=== PATIENT | female | born 1965 | race Two or more races ===

== ENCOUNTER 2020-06-22 18:26 | Inpatient (IN) | payer OTHER, SELFPAY ==
[~2020-06-22] VITALS: Ht 157.5 cm; Wt 50.5 kg
--- NOTE | 2020-06-22 19:39 | NUR ---
SPECIALTY DEVELOPMENT CONSULTANT: PT. TO ROOM FROM LOBBY AT THIS TIME.
[2020-06-22 20:49] LABS: BASOPHILS % (AUTO) 1 % (0-1); EOSINOPHILS % (AUTO) 1 % (1-7); LYMPHOCYTES % (AUTO) 13 % (22-44); MEAN CORPUSCULAR HEMOGLOBIN 27.7 pg (27.0-34.8); MEAN CORPUSCULAR HGB CONC 32.3 g/dL (32.4-35.8); MEAN PLATELET VOLUME 9.9 fL (7.4-10.4); MONOCYTES % (AUTO) 8 % (2-9); NEUTROPHILS % (AUTO) 76 % (42-75); PLATELET COUNT 410 x10^3/uL (130-400); RED BLOOD COUNT 3.71 x10^6/uL (3.82-5.3); RED CELL DISTRIBUTION WIDTH 14.1 % (9.6-15.2)
[2020-06-22 20:58] LABS: MD NO
[2020-06-22 20:59] LABS: ALBUMIN 1.9 g/dL (3.4-5.0); ANION GAP 7 mmol/L (5-15); CALCIUM 8.3 mg/dL (8.5-10.1); CHLORIDE 92 mmol/L (98-107); CREATININE 2.86 mg/dL (0.55-1.02)
--- NOTE | 2020-06-22 21:07 | NUR ---
788 blood sugar critical lab
[2020-06-22 21:30] LABS: PH, VENOUS 7.332 pH (7.320-7.420)
[2020-06-22] MEDS ORDERED: SODIUM CHLORIDE 0.9% 1,000ML IVBOLUS ONE (21:30)
[2020-06-22] MEDS ORDERED: INSULIN REGULAR 100 UNITS/ML, 3ML VIAL SQ-INSULIN ONE (21:30)
[2020-06-22] MEDS ORDERED: INSULIN SINGLE DOSE, ER ONE (21:32)
[2020-06-22] MEDS ORDERED: TRANEXAMIC ACID 100 MG/ML, 10ML ONE (21:37)
--- NOTE | 2020-06-22 21:37 | NUR ---
PT RESTING IN BED. DAUGHTER SUPPORTIVE AT BEDSIDE.
[2020-06-22 21:40] LABS: ACETONE, SERUM Trace (Negative)
[2020-06-22] MEDS ORDERED: SODIUM CHLORIDE FLUSH 10ML SYR IVF PRN (22:00)
[2020-06-22] MEDS ORDERED: ONDANSETRON ODT 4 MG PO PRN (22:30)
[2020-06-22] MEDS: SODIUM CHLORIDE FLUSH 10ML SYR IVF SCH (22:30)
[2020-06-22] MEDS ORDERED: BISACODYL 10 MG SUPP PR PRN (22:30)
[2020-06-22] MEDS ORDERED: POLYETHYLENE GLYCOL 17 GM PACKET PO PRN (22:30)
[2020-06-22] MEDS ORDERED: hydrALAzine 20 MG/ML, 1ML IV PRN (22:30)
[2020-06-22] MEDS ORDERED: ACETAMINOPHEN 325 MG TABLET PO PRN (22:30)
[2020-06-22] MEDS ORDERED: LISI30TA4 PO (22:33)
[2020-06-22] MEDS ORDERED: METF-366 PO (22:35)
[2020-06-22] MEDS ORDERED: EMPA25TA PO (22:37)
[2020-06-22] MEDS ORDERED: OMEP-110 PO (22:37)
[2020-06-22] MEDS ORDERED: ATOR-2 PO (22:37)
--- NOTE | 2020-06-22 22:37 | NUR ---
PT RESTING IN BED WATCHING TV. OXYGEN PLACED ON PT
[2020-06-22] MEDS ORDERED: ATORVASTATIN 80 MG TABLET ONE (23:31)
[2020-06-22] MEDS ORDERED: FUROSEMIDE 20 MG/2 ML ONE (23:31)
[2020-06-22] MEDS: FUROSEMIDE 20 MG/2 ML IV SCH (23:34)
[2020-06-22] MEDS: ATORVASTATIN 80 MG TABLET PO SCH (23:35)
[2020-06-22 23:40] LABS: ESTIMATED AVERAGE GLUCOSE 355 mg/dL (0-126)
[2020-06-23 00:09] LABS: INTERNATIONAL NORMALIZED RATIO 0.9 (0.93-1.1); PROTHROMBIN TIME 9.6 Seconds (9.6-11.5)
[2020-06-23] MEDS: INSULIN LISPRO 100 UNITS/ML, PEN SQ-INSULIN SCH ×6 (00:26→21:03)
--- NOTE | 2020-06-23 00:27 | NUR ---
PT AMBULATING TO BATHROOM ON OWN. VSS.
--- NOTE | 2020-06-23 00:52 | NUR ---
report given to mahendra delarosa
--- NOTE | 2020-06-23 00:54 | NUR ---
report received from fortino mccray
--- NOTE | 2020-06-23 01:53 | NUR ---
SUGAR FREE JELLO AND SPRITE GIVEN TO PT
--- NOTE | 2020-06-23 03:00 | NUR ---
PT SLEEPING, NO NEEDS AT THIS TIME. VSS
--- NOTE | 2020-06-23 03:57 | NUR ---
placed on 3L oxy mask while sleeping, O2 98%. Rhino rocket in place, pt tolerating well.
--- NOTE | 2020-06-23 05:00 | NUR ---
PT SLEEPING. VSS.
[2020-06-23] MEDS ORDERED: CARVEDILOL 3.125 MG TABLET PO SCH (06:00)
[2020-06-23] MEDS ORDERED: CARVEDILOL 3.125 MG TABLET ONE (06:05)
--- NOTE | 2020-06-23 06:30 | NUR ---
PT PLACED ON HOSPITAL BED, MEDICATED WITH AM BEDS, BLOOD SUGAR TAKEN, AND US COLLECTED. PT WALKED TO BATHROOM WITH STEADY GAIT.
--- NOTE | 2020-06-23 07:02 | NUR ---
REPORT GIVEN TO TELMA MALDONADO
[2020-06-23 07:44] LABS: MICROSCOPIC INDICATED
[2020-06-23] MEDS ORDERED: OMEPRAZOLE 20 MG CAPSULE.DR ONE (08:25)
[2020-06-23] MEDS ORDERED: SENNA/DOCUSATE TABLET ONE ×2 (08:26→08:38)
[2020-06-23] MEDS ORDERED: FUROSEMIDE 20 MG/2 ML ONE (08:26)
[2020-06-23] MEDS: FUROSEMIDE 20 MG/2 ML IV SCH (08:30)
[2020-06-23] MEDS: SODIUM CHLORIDE FLUSH 10ML SYR IVF SCH ×2 (08:32→21:02)
[2020-06-23] MEDS: SENNA/DOCUSATE TABLET PO SCH (08:39)
[2020-06-23] MEDS ORDERED: OMEPRAZOLE 20 MG CAPSULE.DR PO SCH (09:00)
[2020-06-23] MEDS: LACTOBACILLUS CHEW TABLET PO SCH ×3 (09:51→20:45)
[2020-06-23 10:25] LABS: BASOPHILS % (AUTO) 1 % (0-1); EOSINOPHILS % (AUTO) 2 % (1-7); LYMPHOCYTES % (AUTO) 14 % (22-44); MEAN CORPUSCULAR HEMOGLOBIN 27.7 pg (27.0-34.8); MEAN CORPUSCULAR HGB CONC 33.3 g/dL (32.4-35.8); MEAN PLATELET VOLUME 9.1 fL (7.4-10.4); MONOCYTES % (AUTO) 8 % (2-9); NEUTROPHILS % (AUTO) 76 % (42-75); PLATELET COUNT 380 x10^3/uL (130-400); RED BLOOD COUNT 3.05 x10^6/uL (3.82-5.3); RED CELL DISTRIBUTION WIDTH 14.1 % (9.6-15.2)
[2020-06-23 10:31] LABS: ANION GAP 5 mmol/L (5-15); CALCIUM 8.7 mg/dL (8.5-10.1); CHLORIDE 102 mmol/L (98-107); CREATININE 2.45 mg/dL (0.55-1.02)
[2020-06-23 10:33] LABS: MD NO
[2020-06-23 14:08] VITALS: BP 120/64
[2020-06-23] MEDS: CARVEDILOL 6.25 MG TABLET PO SCH (17:25)
[2020-06-23 19:30] VITALS: BP 137/74
[2020-06-23] MEDS: ATORVASTATIN 80 MG TABLET PO SCH (20:45)
[2020-06-24 02:00] VITALS: BP 178/77
[2020-06-24 04:30] VITALS: BP 144/66
[2020-06-24] MEDS: OMEPRAZOLE 20 MG CAPSULE.DR PO SCH (04:44)
[2020-06-24] MEDS: CARVEDILOL 6.25 MG TABLET PO SCH ×2 (04:49→17:40)
[2020-06-24] MEDS: ACETAMINOPHEN 325 MG TABLET PO PRN (04:59)
[2020-06-24 06:36] VITALS: BP 119/64
[2020-06-24 06:50] LABS: BASOPHILS % (AUTO) 1 % (0-1); EOSINOPHILS % (AUTO) 1 % (1-7); LYMPHOCYTES % (AUTO) 17 % (22-44); MEAN CORPUSCULAR HEMOGLOBIN 27.9 pg (27.0-34.8); MEAN CORPUSCULAR HGB CONC 33.3 g/dL (32.4-35.8); MEAN PLATELET VOLUME 9.9 fL (7.4-10.4); MONOCYTES % (AUTO) 8 % (2-9); NEUTROPHILS % (AUTO) 73 % (42-75); PLATELET COUNT 377 x10^3/uL (130-400); RED BLOOD COUNT 3.18 x10^6/uL (3.82-5.3)
[2020-06-24 06:52] LABS: MD NO
[2020-06-24 07:06] LABS: CHLORIDE 100 mmol/L (98-107)
[2020-06-24 07:15] LABS: ANION GAP 10 mmol/L (5-15); CALCIUM 8.4 mg/dL (8.5-10.1); CREATININE 2.62 mg/dL (0.55-1.02)
[2020-06-24] MEDS: FUROSEMIDE 40 MG TABLET PO SCH (07:53)
[2020-06-24] MEDS: LACTOBACILLUS CHEW TABLET PO SCH ×3 (07:53→21:00)
[2020-06-24] MEDS: SENNA/DOCUSATE TABLET PO SCH (07:54)
[2020-06-24] MEDS: SODIUM CHLORIDE FLUSH 10ML SYR IVF SCH ×2 (07:54→21:00)
[2020-06-24] MEDS: INSULIN LISPRO 100 UNITS/ML, PEN SQ-INSULIN SCH ×4 (07:54→21:00)
[2020-06-24 12:06] VITALS: BP 128/65
[2020-06-24 19:01] VITALS: BP 132/82
[2020-06-24] MEDS: ATORVASTATIN 80 MG TABLET PO SCH (21:00)
[2020-06-24] MEDS ORDERED: INSULIN GLARGINE 100 UNITS/ML, PEN SQ-INSULIN SCH (21:00)
[2020-06-25 00:11] VITALS: BP 160/81
[2020-06-25 04:34] LABS: BASOPHILS % (AUTO) 1 % (0-1); EOSINOPHILS % (AUTO) 1 % (1-7); LYMPHOCYTES % (AUTO) 20 % (22-44); MEAN CORPUSCULAR HGB CONC 33.4 g/dL (32.4-35.8); MEAN PLATELET VOLUME 9.4 fL (7.4-10.4); MONOCYTES % (AUTO) 10 % (2-9); NEUTROPHILS % (AUTO) 69 % (42-75); PLATELET COUNT 372 x10^3/uL (130-400); RED BLOOD COUNT 2.98 x10^6/uL (3.82-5.3); RED CELL DISTRIBUTION WIDTH 13.9 % (9.6-15.2)
[2020-06-25 04:38] LABS: ANION GAP 7 mmol/L (5-15); CALCIUM 8.4 mg/dL (8.5-10.1); CHLORIDE 105 mmol/L (98-107)
[2020-06-25 04:44] LABS: CREATININE 3.05 mg/dL (0.55-1.02)
[2020-06-25 04:55] LABS: MD NO
[2020-06-25] MEDS: OMEPRAZOLE 20 MG CAPSULE.DR PO SCH (06:05)
[2020-06-25] MEDS: CARVEDILOL 6.25 MG TABLET PO SCH ×2 (06:05→17:40)
[2020-06-25] MEDS: ACETAMINOPHEN 325 MG TABLET PO PRN (06:08)
[2020-06-25 07:36] VITALS: BP 133/72
[2020-06-25] MEDS: INSULIN LISPRO 100 UNITS/ML, PEN SQ-INSULIN SCH ×4 (08:28→20:49)
[2020-06-25] MEDS: SODIUM CHLORIDE FLUSH 10ML SYR IVF SCH ×2 (09:19→20:48)
[2020-06-25] MEDS: FUROSEMIDE 40 MG TABLET PO SCH (09:19)
[2020-06-25] MEDS: LACTOBACILLUS CHEW TABLET PO SCH ×3 (09:19→20:48)
[2020-06-25] MEDS: SENNA/DOCUSATE TABLET PO SCH (09:19)
[2020-06-25 12:35] VITALS: BP 166/81
[2020-06-25 17:39] VITALS: BP 181/89
[2020-06-25 18:36] VITALS: BP 160/74
[2020-06-25] MEDS: ATORVASTATIN 80 MG TABLET PO SCH (20:48)
[2020-06-25] MEDS ORDERED: INSULIN GLARGINE 100 UNITS/ML, PEN SQ-INSULIN SCH (21:00)
[2020-06-26 00:30] VITALS: BP 136/69
[2020-06-26 04:52] LABS: BASOPHILS % (AUTO) 1 % (0-1); EOSINOPHILS % (AUTO) 1 % (1-7); LYMPHOCYTES % (AUTO) 13 % (22-44); MEAN CORPUSCULAR HEMOGLOBIN 27.4 pg (27.0-34.8); MEAN CORPUSCULAR HGB CONC 32.5 g/dL (32.4-35.8); MEAN PLATELET VOLUME 9.4 fL (7.4-10.4); MONOCYTES % (AUTO) 9 % (2-9); NEUTROPHILS % (AUTO) 77 % (42-75); PLATELET COUNT 406 x10^3/uL (130-400); RED CELL DISTRIBUTION WIDTH 14.1 % (9.6-15.2)
[2020-06-26 04:55] LABS: MD NO
[2020-06-26 05:08] LABS: ANION GAP 6 mmol/L (5-15); CHLORIDE 103 mmol/L (98-107)
[2020-06-26 05:15] LABS: CREATININE 2.73 mg/dL (0.55-1.02)
[2020-06-26] MEDS: CARVEDILOL 6.25 MG TABLET PO SCH (05:50)
[2020-06-26] MEDS: OMEPRAZOLE 20 MG CAPSULE.DR PO SCH (05:50)
[2020-06-26] MEDS ORDERED: POTASSIUM CHLORIDE 20 MEQ TAB.ER.PRT PO ONE (08:00)
[2020-06-26] MEDS ORDERED: FUROSEMIDE 40 MG TABLET ONE (08:13)
[2020-06-26] MEDS ORDERED: POTASSIUM CHLORIDE 20 MEQ TAB.ER.PRT ONE (08:14)
[2020-06-26] MEDS: INSULIN LISPRO 100 UNITS/ML, PEN SQ-INSULIN SCH ×4 (08:19→20:31)
[2020-06-26] MEDS: LACTOBACILLUS CHEW TABLET PO SCH ×3 (08:22→20:32)
[2020-06-26] MEDS: SENNA/DOCUSATE TABLET PO SCH (08:22)
[2020-06-26] MEDS: SODIUM CHLORIDE FLUSH 10ML SYR IVF SCH ×2 (08:28→20:32)
[2020-06-26] MEDS ORDERED: FUROSEMIDE 40 MG TABLET PO SCH (09:00)
[2020-06-26 09:24] VITALS: BP 104/65
[2020-06-26 15:18] VITALS: BP 169/90
[2020-06-26] MEDS: CARVEDILOL 12.5 MG TABLET PO SCH (16:50)
[2020-06-26 16:53] VITALS: BP 156/78
[2020-06-26 19:22] VITALS: BP 112/57
[2020-06-26] MEDS: ATORVASTATIN 80 MG TABLET PO SCH (20:32)
[2020-06-26] MEDS ORDERED: INSULIN GLARGINE 100 UNITS/ML, PEN SQ-INSULIN SCH (21:00)
[2020-06-27 00:41] VITALS: BP 135/73
[2020-06-27] MEDS: ACETAMINOPHEN 325 MG TABLET PO PRN (01:52)
[2020-06-27 05:31] VITALS: BP 131/77
[2020-06-27] MEDS: OMEPRAZOLE 20 MG CAPSULE.DR PO SCH (05:34)
[2020-06-27] MEDS: CARVEDILOL 12.5 MG TABLET PO SCH (05:34)
[2020-06-27 05:39] LABS: ANION GAP 5 mmol/L (5-15); CALCIUM 8.5 mg/dL (8.5-10.1); CHLORIDE 102 mmol/L (98-107)
[2020-06-27 05:44] LABS: CREATININE 2.83 mg/dL (0.55-1.02)
[2020-06-27 07:05] VITALS: BP 103/63
[2020-06-27 08:30] VITALS: BP 116/69
[2020-06-27] MEDS: SODIUM CHLORIDE FLUSH 10ML SYR IVF SCH (08:34)
[2020-06-27] MEDS: INSULIN LISPRO 100 UNITS/ML, PEN SQ-INSULIN SCH ×2 (08:34→11:00)
[2020-06-27] MEDS: LACTOBACILLUS CHEW TABLET PO SCH (08:34)
[2020-06-27] MEDS: SENNA/DOCUSATE TABLET PO SCH (09:00)
[2020-06-27] MEDS ORDERED: HYDR-3341 PO (09:37)
[2020-06-27] MEDS ORDERED: INSU100I11 SQ-INSULIN (09:37)
[2020-06-27] MEDS ORDERED: INSU100I13 SQ-INSULIN (09:37)
[2020-06-27] MEDS ORDERED: CARV12.52 PO (09:37)
[2020-06-27] MEDS ORDERED: ACID1TAB7 PO (09:37)
[2020-06-27] MEDS ORDERED: FLU VACC QS2020-21(6MOS UP)/PF 60MCG/0.5 ML SYR IM ONE (12:00)
== END 2020-06-27 12:55 | disposition home or self-care (01) | DRG 682 ==
LOC: ED 21:27 → ORIP 21:51 → EDIP 06-23 10:58 → 4WST 06-23 14:06 → 5SO 06-26 17:15 → DCLOUNGE 06-27 12:40
PROVIDERS: ADMIT Family Medicine; ATTEND Internal Medicine
DX: N17.9 Acute kidney failure, unspecified (principal); I50.41 Acute combined systolic (congestive) and diastolic (congestive) heart failure; E43 Unspecified severe protein-calorie malnutrition; I13.0 Hypertensive heart and chronic kidney disease with heart failure and stage 1 through stage 4 chronic kidney disease, or unspecified chronic kidney disease; E87.1 Hypo-osmolality and hyponatremia; R04.0 Epistaxis; N18.4 Chronic kidney disease, stage 4 (severe); K21.9 Gastro-esophageal reflux disease without esophagitis; Z79.4 Long term (current) use of insulin; Z82.49 Family history of ischemic heart disease and other diseases of the circulatory system; I16.0 Hypertensive urgency; E87.6 Hypokalemia; E78.5 Hyperlipidemia, unspecified; E78.00 Pure hypercholesterolemia, unspecified; E11.65 Type 2 diabetes mellitus with hyperglycemia; E11.22 Type 2 diabetes mellitus with diabetic chronic kidney disease; D64.9 Anemia, unspecified; D69.6 Thrombocytopenia, unspecified; E11.43 Type 2 diabetes mellitus with diabetic autonomic (poly)neuropathy; K31.84 Gastroparesis
CPT/HCPCS: 36415; 71045; 76770; 80048; 81001; 82010; 82040; 82803; 82962; 83036; 83735; 83880; 85025; 85610; 85730; 90686; 93005; 93306; 99285; G0378; J1815; J1940; J7030

== ENCOUNTER 2020-07-04 18:07 | Emergency (ER) | payer OTHER ==
[~2020-07-04] VITALS: Ht 152.4 cm; Wt 53.6 kg
[~2020-07-04 18:07] MED LIST: ACID1TAB7 PO; ATOR-2 PO; CARV12.52 PO; EMPA25TA PO; HYDR-3341 PO; INSU100I11 SQ-INSULIN; INSU100I13 SQ-INSULIN; LISI30TA4 PO; METF-366 PO; OMEP-110 PO
[2020-07-04 18:16] VITALS: BP 156/84
--- NOTE | 2020-07-04 18:32 | NUR ---
PT HAD INDWELLING MURDOCK PLACED LAST MONDAY PRIOR TO HOSPITAL DC. PT STATES THERE HAS NOT BEEN ANY URINE DRAINAGE TODAY. UPON INSPECTION OF MURDOCK AND TUBING, TUBING FOUND TO BE KINKED. TUBING REPOSITIONED AND URINE STARTED DRAINING. ABOUT 2L URINE DRAINED.
== END 2020-07-04 19:32 | disposition home or self-care (01) ==
LOC: ED 18:36
DX: T83.028D Displacement of other urinary catheter, subsequent encounter (principal); I11.0 Hypertensive heart disease with heart failure; I50.9 Heart failure, unspecified; E11.9 Type 2 diabetes mellitus without complications; E78.00 Pure hypercholesterolemia, unspecified
CPT/HCPCS: 99281

== ENCOUNTER → 2020-09-01 | Outpatient (CLI) | payer OTHER ==
[~2020-09-01] MED LIST changes: +REGADENOSON 0.4 MG/5 ML SYRINGE ONE
== END | disposition home or self-care (01) ==
LOC: CFH 07-30 12:10
PROVIDERS: ATTEND Internal Medicine Cardiovascular Disease
DX: I50.21 Acute systolic (congestive) heart failure (principal); E11.9 Type 2 diabetes mellitus without complications
CPT/HCPCS: 78452; 93017; A9502; J2785

== ENCOUNTER 2020-10-23 05:42 | Inpatient (IN) | payer OTHER ==
[~2020-10-23] VITALS: Ht 149.9 cm; Wt 56.4 kg
[~2020-10-23 05:42] MED LIST changes: -REGADENOSON 0.4 MG/5 ML SYRINGE ONE
--- NOTE | 2020-10-23 06:00 | NUR ---
INITIAL PT CONTACT. PT PRESENTS TO THE ED C/O LEFT SIDED CHEST PAIN THAT RADIATES TO THE LEFT ARM, PAIN PRESENT SINCE LAST NIGHT, APPROX 5PM. PT C/O NAUSEA AND SOME SOB ASSOCIATED WITH THE CHEST PAIN, "PAIN FEELS LIKE STABBING PAINS IN MY HEART". PT ALSO C/O HER VISION GOT DARK AFTER SHE WOKE UP. PT STATES SHE DOES TAKE A BABY ASA DAILY, TOOK ONE LAST NIGHT AFTER THE PAIN BEGAN. PT SITTING UPRIGHT ON GURNEY, CONTINUOUS PULSE OX AND HEEL LIFT GOUGER IN PLACE. SPOUSE AT BEDSIDE. ERP AT BEDSIDE.
[2020-10-23] MEDS ORDERED: ASPIRIN 81 MG TABLET CHEW ONE (06:10)
[2020-10-23] MEDS ORDERED: ONDANSETRON ODT 4 MG ONE (06:11)
[2020-10-23 06:27] LABS: BASOPHILS % (AUTO) 1 % (0-1); EOSINOPHILS % (AUTO) 2 % (1-7); LYMPHOCYTES % (AUTO) 16 % (22-44); MD NO; MEAN CORPUSCULAR HEMOGLOBIN 27.2 pg (27.0-34.8); MEAN CORPUSCULAR HGB CONC 33.3 g/dL (32.4-35.8); MONOCYTES % (AUTO) 7 % (2-9); NEUTROPHILS % (AUTO) 74 % (42-75); PLATELET COUNT 387 x10^3/uL (130-400); RED BLOOD COUNT 2.85 x10^6/uL (3.82-5.3); RED CELL DISTRIBUTION WIDTH 15.5 % (9.6-15.2)
[2020-10-23] MEDS ORDERED: ASPIRIN 81 MG TABLET CHEW PO ONE (06:30)
[2020-10-23] MEDS ORDERED: SODIUM CHLORIDE FLUSH 10ML SYR IVF ONE (06:30)
[2020-10-23] MEDS ORDERED: ONDANSETRON ODT 4 MG PO ONE (06:30)
[2020-10-23 06:38] LABS: ALBUMIN 2.7 g/dL (3.4-5.0); ANION GAP 7 mmol/L (5-15); CALCIUM 8.4 mg/dL (8.5-10.1); CHLORIDE 107 mmol/L (98-107); CREATININE 3.45 mg/dL (0.55-1.02)
[2020-10-23 06:42] LABS: TROPONIN I 0.016 ng/mL (0.000-0.045)
--- NOTE | 2020-10-23 06:54 | NUR ---
BEDSIDE REPORT TO CLAUIDA MALDONADO
--- NOTE | 2020-10-23 07:17 | NUR ---
pt states she feels a little bit better. Spouse at bedside. call light within reach and all monitors in place.
[2020-10-23] MEDS ORDERED: FURO20TA3 PO (07:21)
--- NOTE | 2020-10-23 07:55 | NUR ---
pt o2 sat down to 50% with good wave form then pops back up into the low 90's. Per Dr Grewal, placed 2L o2 via NC. Provider will order CT of the chest.
--- NOTE | 2020-10-23 08:27 | NUR ---
pt sleeping comfortably on gurney with spouse at bedside. respirations even and unlabored. all monitors in place. awaiting VQ scan. call light within reach.
--- NOTE | 2020-10-23 09:59 | NUR ---
PT TO VQ SCAN WITH TECH
--- NOTE | 2020-10-23 10:28 | NUR ---
BREAK RN NOTE: PT REMAINS IN RADIOLOGY FOR VQ SCAN.
--- NOTE | 2020-10-23 10:44 | NUR ---
pt back from VQ scan, vitals updated, all monitors in place, spouse at bedside. call light within reach. Awaiting disposition
[2020-10-23] MEDS ORDERED: FUROSEMIDE 40 MG TABLET ONE (11:09)
[2020-10-23] MEDS ORDERED: FUROSEMIDE 40 MG TABLET PO ONE (11:30)
[2020-10-23] MEDS ORDERED: ENALAPRILAT 1.25 MG/ML, 2ML IVPush PRN (12:30)
[2020-10-23] MEDS ORDERED: ONDANSETRON 2MG/ML, 2ML IVPush PRN (12:30)
[2020-10-23] MEDS ORDERED: hydrALAzine 20 MG/ML, 1ML IVPush PRN (12:30)
[2020-10-23] MEDS ORDERED: ACETAMINOPHEN 325 MG TABLET PO PRN (12:30)
[2020-10-23] MEDS ORDERED: ONDANSETRON ODT 4 MG PO PRN (12:30)
[2020-10-23] MEDS ORDERED: morphine SULFATE 10 MG/ML, 1ML IVPush PRN (12:30)
[2020-10-23 12:49] VITALS: BP 168/81
[2020-10-23 12:52] VITALS: BP 168/81
[2020-10-23 12:57] LABS: TROPONIN I 0.047 ng/mL (0.000-0.045)
[2020-10-23] MEDS: INSULIN LISPRO 100 UNITS/ML, PEN SQ-INSULIN SCH ×2 (18:23→22:22)
[2020-10-23] MEDS: CARVEDILOL 12.5 MG TABLET PO SCH (18:29)
[2020-10-23 18:41] LABS: TROPONIN I 0.036 ng/mL (0.000-0.045)
[2020-10-23 20:09] VITALS: BP 146/71
[2020-10-23] MEDS: ATORVASTATIN 80 MG TABLET PO SCH (20:11)
[2020-10-23 20:54] LABS: MICROSCOPIC AUTO
[2020-10-23 21:29] LABS: CREATININE,URINE RANDOM 14.5 mg/dL
[2020-10-23] MEDS: INSULIN GLARGINE 100 UNITS/ML, PEN SQ-INSULIN SCH (22:23)
[2020-10-24] VITALS (7 sets, daily range): BP systolic 98–160; BP diastolic 52–98
[2020-10-24 05:37] LABS: MEAN CORPUSCULAR HGB CONC 33.4 g/dL (32.4-35.8); MEAN PLATELET VOLUME 8.4 fL (7.4-10.4); PLATELET COUNT 326 x10^3/uL (130-400); RED BLOOD COUNT 2.49 x10^6/uL (3.82-5.3); RED CELL DISTRIBUTION WIDTH 15.5 % (9.6-15.2)
[2020-10-24 05:38] LABS: ALBUMIN 2.1 g/dL (3.4-5.0); ANION GAP 8 mmol/L (5-15); CALCIUM 7.9 mg/dL (8.5-10.1); CHLORIDE 108 mmol/L (98-107); CREATININE 3.45 mg/dL (0.55-1.02); IRON LEVEL 14 mcg/dL (50-170)
[2020-10-24 05:43] LABS: % IRON SATURATION 5 % (20-55); TOTAL IRON BINDING CAPACITY 303 mcg/dL (250-450)
[2020-10-24] MEDS: OMEPRAZOLE 20 MG CAPSULE.DR PO SCH (06:08)
[2020-10-24] MEDS: INSULIN LISPRO 100 UNITS/ML, PEN SQ-INSULIN SCH ×4 (07:00→20:15)
[2020-10-24 08:34] LABS: MD YES
[2020-10-24 08:40] LABS: BAND#(MANUAL) 0.27 x10^3/uL; BANDS%(MANUAL) 4 % (0-7); EOS#(MANUAL) 0.07 x10^3/uL (0.0-0.4); EOS% (MANUAL) 1 % (1-7); LYMPH#(MANUAL) 0.94 x10^3/uL (1-3.4); LYMPHS% (MANUAL) 14 % (22-44); MONOS#(MANUAL) 0.47 x10^3/uL (0.3-2.7); MONOS% (MANUAL) 7 % (2-9); SEG#(MANUAL) 4.96 x10^3/uL (1.8-6.8); SEGS% (MANUAL) 74 % (42-75)
[2020-10-24 08:41] LABS: ACANTHOCYTES 1+; ANISOCYTOSIS 1+; HYPOCHROMIA 1+; MICROCYTOSIS 1+; SCHISTOCYTES 1+
[2020-10-24 08:42] LABS: <PLATELET ESTIMATE> ADEQUATE; <PLT MORPHOLOGY> NORMAL PLT MORPH; ECHINOCYTES 1+; SPHEROCYTES 1+
[2020-10-24] MEDS ORDERED: FUROSEMIDE 100 MG/10 ML IV ONE (09:00)
[2020-10-24] MEDS ORDERED: ERGOCALCIFEROL 50,000 UNIT CAPSULE PO SCH (09:00)
[2020-10-24] MEDS: CARVEDILOL 12.5 MG TABLET PO SCH ×2 (09:00→17:08)
[2020-10-24] MEDS: IRON SUCROSE COMPLEX 100MG/5ML IV SCH (10:07)
[2020-10-24] MEDS: CALCITRIOL 0.25 MCG CAPSULE PO SCH (10:08)
[2020-10-24] MEDS: SEVELAMER CARBONATE 800MG TAB PO SCH ×2 (12:48→17:08)
[2020-10-24] MEDS: ATORVASTATIN 80 MG TABLET PO SCH (20:06)
[2020-10-24] MEDS: INSULIN GLARGINE 100 UNITS/ML, PEN SQ-INSULIN SCH (20:15)
[2020-10-25 01:09] VITALS: BP 148/79
[2020-10-25 05:34] LABS: BASOPHILS % (AUTO) 1 % (0-1); EOSINOPHILS % (AUTO) 3 % (1-7); LYMPHOCYTES % (AUTO) 21 % (22-44); MEAN CORPUSCULAR HEMOGLOBIN 27.9 pg (27.0-34.8); MEAN CORPUSCULAR HGB CONC 33.8 g/dL (32.4-35.8); MEAN PLATELET VOLUME 8.1 fL (7.4-10.4); MONOCYTES % (AUTO) 9 % (2-9); NEUTROPHILS % (AUTO) 66 % (42-75); PLATELET COUNT 328 x10^3/uL (130-400); RED BLOOD COUNT 3.15 x10^6/uL (3.82-5.3); RED CELL DISTRIBUTION WIDTH 15.8 % (9.6-15.2)
[2020-10-25 05:42] LABS: MD NO
[2020-10-25 05:50] LABS: CHLORIDE 106 mmol/L (98-107)
[2020-10-25] MEDS: OMEPRAZOLE 20 MG CAPSULE.DR PO SCH (05:56)
[2020-10-25] MEDS: CARVEDILOL 12.5 MG TABLET PO SCH (05:57)
[2020-10-25 05:58] VITALS: BP 161/85
[2020-10-25 06:00] LABS: ALANINE AMINOTRANSFERASE 44 U/L (12-78); ALBUMIN 2.3 g/dL (3.4-5.0); ALKALINE PHOSPHATASE 88 U/L (45-117); ANION GAP 10 mmol/L (5-15); BILIRUBIN,TOTAL 0.3 mg/dL (0.2-1.0); CALCIUM 8.1 mg/dL (8.5-10.1); CREATININE 3.34 mg/dL (0.55-1.02); TOTAL PROTEIN 6.5 g/dL (6.4-8.2)
[2020-10-25 06:40] VITALS: BP 153/77
[2020-10-25] MEDS: INSULIN LISPRO 100 UNITS/ML, PEN SQ-INSULIN SCH ×2 (07:00→11:00)
[2020-10-25] MEDS ORDERED: TORSEMIDE 20 MG TABLET PO SCH (09:00)
[2020-10-25] MEDS: CALCITRIOL 0.25 MCG CAPSULE PO SCH (09:01)
[2020-10-25] MEDS: IRON SUCROSE COMPLEX 100MG/5ML IV SCH (09:01)
[2020-10-25] MEDS: SEVELAMER CARBONATE 800MG TAB PO SCH ×2 (09:01→12:50)
[2020-10-25 13:22] VITALS: BP 158/75
[2020-10-25] MEDS ORDERED: SEVE800T8 PO (14:40)
[2020-10-25] MEDS ORDERED: FERR325T18 PO (14:40)
[2020-10-25] MEDS ORDERED: ERGO500017 PO (14:40)
[2020-10-25] MEDS ORDERED: TORS20TA2 PO (14:40)
== END 2020-10-25 16:15 | disposition home or self-care (01) | DRG 683 ==
LOC: ED 06:35 → EDIP 11:09 → INTOOBSV 11:09 → 5SO 12:56 → OBSVTOIN 10-24 13:40 → DCLOUNGE 10-25 15:38
PROVIDERS: ADMIT Hospitalist; ATTEND Hospitalist
DX: N17.9 Acute kidney failure, unspecified (principal); I42.9 Cardiomyopathy, unspecified; I13.0 Hypertensive heart and chronic kidney disease with heart failure and stage 1 through stage 4 chronic kidney disease, or unspecified chronic kidney disease; D63.1 Anemia in chronic kidney disease; N18.4 Chronic kidney disease, stage 4 (severe); N25.81 Secondary hyperparathyroidism of renal origin; E11.22 Type 2 diabetes mellitus with diabetic chronic kidney disease; E11.43 Type 2 diabetes mellitus with diabetic autonomic (poly)neuropathy; E55.9 Vitamin D deficiency, unspecified; E78.00 Pure hypercholesterolemia, unspecified; E78.5 Hyperlipidemia, unspecified; I27.20 Pulmonary hypertension, unspecified; I50.9 Heart failure, unspecified; K21.9 Gastro-esophageal reflux disease without esophagitis; K31.84 Gastroparesis; Z79.4 Long term (current) use of insulin; Z82.49 Family history of ischemic heart disease and other diseases of the circulatory system
CPT/HCPCS: 36415; 36430; 71045; 78582; 80048; 80053; 80069; 81001; 82040; 82306; 82570; 82728; 82962; 83036; 83540; 83550; 83880; 83883; 83970; 84100; 84155; 84156; 84165; 84166; 84484; 85014; 85018; 85025; 86038; 86160; 86162; 86850; 86900; 86923; 93005; 93306; G0378; J1756; J1940; J2405; Q0162; A9540; A9558; J1815; P9016

== ENCOUNTER 2020-11-18 13:46 | Inpatient (IN) | payer OTHER ==
[~2020-11-18] VITALS: Ht 149.9 cm; Wt 57.9 kg
[~2020-11-18 13:46] MED LIST changes: +ERGO500017 PO; +FERR325T18 PO; +FURO20TA3 PO; +SEVE800T8 PO; +TORS20TA2 PO
--- NOTE | 2020-11-18 14:20 | NUR ---
PT AMBULATED TO ROOM FROM TRIAGE. PT CO INCREASED SWELLING IN BILATERAL LE OVER THE PAST WEEK. PT HAS HX OF DM AND "SICK KIDNEYS." PT STATED THAT SHE FEELS LIKE SHE IS UNABLE TO URINATE AND HAS SOME LOWER ABDOMINAL PAIN. PT DENIES AND PAINFUL URINATION OR BLOOD IN URINE. PT STATED THAT SHE HAS BEEN COMPLIANT WITH HER MEDICATIONS.
--- NOTE | 2020-11-18 15:20 | NUR ---
IV INITIATED, LABS DRAWN. PT RESTING COMFORTABLY WITH FAMILY AT BEDSIDE
[2020-11-18] MEDS ORDERED: SODIUM CHLORIDE FLUSH 10ML SYR IVF ONE (15:30)
[2020-11-18 16:13] LABS: BASOPHILS % (AUTO) 1 % (0-1); EOSINOPHILS % (AUTO) 2 % (1-7); LYMPHOCYTES % (AUTO) 13 % (22-44); MEAN CORPUSCULAR HEMOGLOBIN 28.3 pg (27.0-34.8); MEAN CORPUSCULAR HGB CONC 33.7 g/dL (32.4-35.8); MEAN PLATELET VOLUME 8.5 fL (7.4-10.4); MONOCYTES % (AUTO) 8 % (2-9); NEUTROPHILS % (AUTO) 76 % (42-75); PLATELET COUNT 353 x10^3/uL (130-400); RED BLOOD COUNT 3.29 x10^6/uL (3.82-5.3); RED CELL DISTRIBUTION WIDTH 17.9 % (9.6-15.2)
[2020-11-18 16:25] LABS: ALBUMIN 2.7 g/dL (3.4-5.0); ANION GAP 5 mmol/L (5-15); CALCIUM 8.8 mg/dL (8.5-10.1); CHLORIDE 109 mmol/L (98-107)
--- NOTE | 2020-11-18 16:30 | NUR ---
PT RESTING COMFORTABLY IN BED. LAB WORK PENDING.
[2020-11-18 16:31] LABS: ALANINE AMINOTRANSFERASE 52 U/L (12-78); ALKALINE PHOSPHATASE 119 U/L (45-117); BILIRUBIN,TOTAL 0.3 mg/dL (0.2-1.0); CREATININE 3.18 mg/dL (0.55-1.02); TROPONIN I < 0.015 ng/mL (0.000-0.045)
--- NOTE | 2020-11-18 17:00 | NUR ---
TASK RN: PT HYPERTENSIVE W HISTORY OF SAME. REPORTS COMPLIANCE WITH ANTIHYPERTENSIVE MEDICATIONS, LAST DOSE THIS AM. PT DENIES CHEST PAIN/SOB. REPORTS MILD HEADACHE THAT "JUST STARTED". PT AMBULATED STEADILY TO BATHROOM TO PROVIDE UA, UA COLLECTED AND SENT TO LAB. PT HYPOXIC UPON RETURN TO [facility], 83% ON RA. RESPIRATIONS EVEN/UNLABORED AND PATIENT DENIED SOB OR INCREASED WOB. BP/SPO2/ECG MONITORING IN PLACE. SINUS TACH, HR 100. ERP AT BEDSIDE TO DISCUSS FURTHER POC. FAMILY AT BEDSIDE.
[2020-11-18 17:20] LABS: MICROSCOPIC AUTO
[2020-11-18] MEDS ORDERED: FUROSEMIDE 20 MG/2 ML ONE (17:23)
[2020-11-18] MEDS ORDERED: FUROSEMIDE 20 MG/2 ML IV ONE (18:00)
[2020-11-18] MEDS ORDERED: SODIUM CHLORIDE FLUSH 10ML SYR IVF PRN (18:00)
--- NOTE | 2020-11-18 18:00 | NUR ---
ADMITTING MD AT BEDSIDE
--- NOTE | 2020-11-18 18:28 | NUR ---
REPORT GIVEN TO JOEL DAMON. ROOM NOT CLEAN. RN TO CALL WHEN ROOM IS READY.
[2020-11-18] MEDS ORDERED: DOCUSATE 100 MG CAPSULE PO PRN (18:30)
[2020-11-18] MEDS ORDERED: ACETAMINOPHEN 325 MG TABLET PO PRN (18:30)
[2020-11-18] MEDS ORDERED: MELATONIN 5 MG TABLET PO PRN (18:30)
[2020-11-18] MEDS ORDERED: ONDANSETRON ODT 4 MG PO PRN (18:30)
[2020-11-18] MEDS ORDERED: LIDODERM 5% PATCH TD PRN (18:30)
[2020-11-18] MEDS ORDERED: LINA5TAB PO (19:49)
[2020-11-18] MEDS ORDERED: HYDR-3343 PO (19:49)
[2020-11-18] MEDS ORDERED: SODI650T PO (19:49)
[2020-11-18 19:59] VITALS: BP 214/111
[2020-11-18] MEDS: HEPARIN 5,000 UNITS/ML, 1ML SQ SCH (20:06)
[2020-11-18] MEDS: hydrALAzine 20 MG/ML, 1ML IVPush PRN (20:06)
[2020-11-18 20:29] VITALS: BP 177/88
[2020-11-18] MEDS ORDERED: ERGOCALCIFEROL 50,000 UNIT CAPSULE PO SCH (21:00)
[2020-11-18 21:25] VITALS: BP 178/84
[2020-11-18] MEDS: ATORVASTATIN 80 MG TABLET PO SCH (22:30)
[2020-11-18] MEDS: FERROUS SULFATE 325 MG TABLET PO SCH (22:30)
[2020-11-18] MEDS: SODIUM BICARBONATE 650 MG TABLET PO SCH (22:30)
[2020-11-18] MEDS: SEVELAMER CARBONATE 800MG TAB PO SCH (22:30)
[2020-11-18 22:33] VITALS: BP 168/82
[2020-11-19] VITALS (7 sets, daily range): BP systolic 149–200; BP diastolic 75–108
[2020-11-19] MEDS: HEPARIN 5,000 UNITS/ML, 1ML SQ SCH ×3 (04:33→21:57)
[2020-11-19 05:15] LABS: BASOPHILS % (AUTO) 1 % (0-1); CHLORIDE 111 mmol/L (98-107); EOSINOPHILS % (AUTO) 3 % (1-7); LYMPHOCYTES % (AUTO) 10 % (22-44); MEAN CORPUSCULAR HEMOGLOBIN 28.4 pg (27.0-34.8); MEAN CORPUSCULAR HGB CONC 33.5 g/dL (32.4-35.8); MONOCYTES % (AUTO) 9 % (2-9); NEUTROPHILS % (AUTO) 77 % (42-75); PLATELET COUNT 337 x10^3/uL (130-400); RED BLOOD COUNT 3.06 x10^6/uL (3.82-5.3)
[2020-11-19 05:21] LABS: ANION GAP 7 mmol/L (5-15); CALCIUM 8.5 mg/dL (8.5-10.1); CREATININE 3.23 mg/dL (0.55-1.02)
[2020-11-19] MEDS ORDERED: FUROSEMIDE 20 MG/2 ML IV SCH (07:30)
[2020-11-19] MEDS: FERROUS SULFATE 325 MG TABLET PO SCH ×2 (08:27→18:22)
[2020-11-19] MEDS: SEVELAMER CARBONATE 800MG TAB PO SCH ×3 (08:27→18:22)
[2020-11-19] MEDS: SODIUM BICARBONATE 650 MG TABLET PO SCH ×3 (08:27→21:57)
[2020-11-19] MEDS: METOLAZONE 2.5 MG TABLET PO SCH ×2 (13:55→18:22)
[2020-11-19] MEDS: hydrALAzine 20 MG/ML, 1ML IVPush PRN (15:55)
[2020-11-19] MEDS: FUROSEMIDE 40 MG/4 ML IV SCH (18:22)
[2020-11-19] MEDS: ATORVASTATIN 80 MG TABLET PO SCH (21:57)
[2020-11-20 01:03] VITALS: BP 159/83
[2020-11-20 04:43] LABS: BASOPHILS % (AUTO) 1 % (0-1); EOSINOPHILS % (AUTO) 4 % (1-7); LYMPHOCYTES % (AUTO) 14 % (22-44); MEAN CORPUSCULAR HEMOGLOBIN 28.3 pg (27.0-34.8); MEAN CORPUSCULAR HGB CONC 33.6 g/dL (32.4-35.8); MEAN PLATELET VOLUME 7.9 fL (7.4-10.4); MONOCYTES % (AUTO) 10 % (2-9); NEUTROPHILS % (AUTO) 71 % (42-75); PLATELET COUNT 321 x10^3/uL (130-400); RED BLOOD COUNT 3.07 x10^6/uL (3.82-5.3); RED CELL DISTRIBUTION WIDTH 18.5 % (9.6-15.2)
[2020-11-20 04:55] LABS: % IRON SATURATION 11 % (20-55); ALBUMIN 2.5 g/dL (3.4-5.0); ANION GAP 5 mmol/L (5-15); CALCIUM 8.5 mg/dL (8.5-10.1); CHLORIDE 109 mmol/L (98-107); CREATININE 3.52 mg/dL (0.55-1.02); IRON LEVEL 31 mcg/dL (50-170); TOTAL IRON BINDING CAPACITY 280 mcg/dL (250-450)
[2020-11-20] MEDS: HEPARIN 5,000 UNITS/ML, 1ML SQ SCH ×3 (05:39→22:16)
[2020-11-20 08:40] VITALS: BP 172/81
[2020-11-20] MEDS: METOLAZONE 2.5 MG TABLET PO SCH (08:46)
[2020-11-20] MEDS: SODIUM BICARBONATE 650 MG TABLET PO SCH ×3 (08:46→20:40)
[2020-11-20] MEDS: FERROUS SULFATE 325 MG TABLET PO SCH ×2 (08:46→17:34)
[2020-11-20] MEDS: FUROSEMIDE 40 MG/4 ML IV SCH ×2 (08:46→17:34)
[2020-11-20] MEDS: SEVELAMER CARBONATE 800MG TAB PO SCH ×3 (08:46→17:34)
[2020-11-20] MEDS: ALBUMIN HUMAN 25% 100 ML IV SCH ×2 (11:12→22:16)
[2020-11-20 15:40] VITALS: BP 179/88
[2020-11-20] MEDS: hydrALAzine 20 MG/ML, 1ML IVPush PRN (16:25)
[2020-11-20 17:28] VITALS: BP 156/79
[2020-11-20 19:07] VITALS: BP 165/77
[2020-11-20] MEDS: ATORVASTATIN 80 MG TABLET PO SCH (20:40)
[2020-11-21 00:12] VITALS: BP 167/82
[2020-11-21 05:49] LABS: BASOPHILS % (AUTO) 1 % (0-1); EOSINOPHILS % (AUTO) 3 % (1-7); LYMPHOCYTES % (AUTO) 9 % (22-44); MEAN CORPUSCULAR HEMOGLOBIN 28.4 pg (27.0-34.8); MEAN CORPUSCULAR HGB CONC 33.5 g/dL (32.4-35.8); MEAN PLATELET VOLUME 8.4 fL (7.4-10.4); MONOCYTES % (AUTO) 9 % (2-9); NEUTROPHILS % (AUTO) 78 % (42-75); PLATELET COUNT 287 x10^3/uL (130-400); RED BLOOD COUNT 2.83 x10^6/uL (3.82-5.3); RED CELL DISTRIBUTION WIDTH 18.1 % (9.6-15.2)
[2020-11-21] MEDS: HEPARIN 5,000 UNITS/ML, 1ML SQ SCH ×3 (06:00→21:31)
[2020-11-21 06:01] LABS: CHLORIDE 103 mmol/L (98-107)
[2020-11-21 06:03] LABS: ANION GAP 7 mmol/L (5-15); CALCIUM 8.8 mg/dL (8.5-10.1); CREATININE 3.61 mg/dL (0.55-1.02)
[2020-11-21 08:59] VITALS: BP 171/86
[2020-11-21] MEDS: SODIUM BICARBONATE 650 MG TABLET PO SCH ×3 (09:02→21:31)
[2020-11-21] MEDS: FUROSEMIDE 40 MG/4 ML IV SCH ×2 (09:02→16:50)
[2020-11-21] MEDS: SEVELAMER CARBONATE 800MG TAB PO SCH ×3 (09:02→16:51)
[2020-11-21] MEDS: FERROUS SULFATE 325 MG TABLET PO SCH ×2 (09:03→16:51)
[2020-11-21] MEDS: ALBUMIN HUMAN 25% 100 ML IV SCH ×2 (10:31→21:30)
[2020-11-21 12:45] VITALS: BP 161/74
[2020-11-21] MEDS: ATORVASTATIN 80 MG TABLET PO SCH (21:31)
[2020-11-21 21:43] VITALS: BP 179/84
[2020-11-22 01:06] VITALS: BP 106/63
[2020-11-22 05:31] LABS: BASOPHILS % (AUTO) 1 % (0-1); EOSINOPHILS % (AUTO) 0 % (1-7); LYMPHOCYTES % (AUTO) 4 % (22-44); MEAN CORPUSCULAR HEMOGLOBIN 28.3 pg (27.0-34.8); MEAN CORPUSCULAR HGB CONC 33.6 g/dL (32.4-35.8); MEAN PLATELET VOLUME 8.3 fL (7.4-10.4); MONOCYTES % (AUTO) 2 % (2-9); NEUTROPHILS % (AUTO) 93 % (42-75); PLATELET COUNT 300 x10^3/uL (130-400); RED BLOOD COUNT 2.93 x10^6/uL (3.82-5.3); RED CELL DISTRIBUTION WIDTH 18.1 % (9.6-15.2)
[2020-11-22 05:43] LABS: ALBUMIN 3.5 g/dL (3.4-5.0); CHLORIDE 99 mmol/L (98-107)
[2020-11-22 05:45] LABS: ANION GAP 9 mmol/L (5-15); CALCIUM 8.7 mg/dL (8.5-10.1); CREATININE 3.85 mg/dL (0.55-1.02)
[2020-11-22 06:11] LABS: ANISOCYTOSIS 1+
[2020-11-22 06:12] LABS: ACANTHOCYTES 1+; ECHINOCYTES 1+; OVALOCYTES 1+; SCHISTOCYTES 1+
[2020-11-22 06:13] LABS: <PLATELET ESTIMATE> ADEQUATE; <PLT MORPHOLOGY> NORMAL PLT MORPH
[2020-11-22] MEDS: HEPARIN 5,000 UNITS/ML, 1ML SQ SCH ×3 (06:47→21:28)
[2020-11-22 07:34] VITALS: BP 160/84
[2020-11-22] MEDS: FUROSEMIDE 40 MG/4 ML IV SCH (08:14)
[2020-11-22] MEDS: FERROUS SULFATE 325 MG TABLET PO SCH ×2 (09:31→17:56)
[2020-11-22] MEDS: SEVELAMER CARBONATE 800MG TAB PO SCH ×3 (09:31→17:56)
[2020-11-22] MEDS: SODIUM BICARBONATE 650 MG TABLET PO SCH ×3 (09:31→21:28)
[2020-11-22] MEDS: ALBUMIN HUMAN 25% 100 ML IV SCH (10:12)
[2020-11-22] MEDS ORDERED: hydrALAzine 20 MG/ML, 1ML IVPush PRN (10:30)
[2020-11-22 13:26] VITALS: BP 195/93
[2020-11-22] MEDS: INSULIN LISPRO 100 UNITS/ML, PEN SQ-INSULIN SCH ×3 (13:36→21:28)
[2020-11-22 14:49] VITALS: BP 182/93
[2020-11-22 21:26] VITALS: BP 174/83
[2020-11-22] MEDS: ATORVASTATIN 80 MG TABLET PO SCH (21:28)
[2020-11-23 04:45] VITALS: BP 167/83
[2020-11-23 05:39] LABS: CHLORIDE 98 mmol/L (98-107)
[2020-11-23 05:44] LABS: ALBUMIN 3.6 g/dL (3.4-5.0); ANION GAP 7 mmol/L (5-15); CREATININE 3.91 mg/dL (0.55-1.02)
[2020-11-23] MEDS: HEPARIN 5,000 UNITS/ML, 1ML SQ SCH ×2 (06:27→14:26)
[2020-11-23] MEDS: INSULIN LISPRO 100 UNITS/ML, PEN SQ-INSULIN SCH ×2 (07:00→11:15)
[2020-11-23] MEDS ORDERED: FUROSEMIDE 40 MG TABLET PO SCH (08:00)
[2020-11-23] MEDS: SEVELAMER CARBONATE 800MG TAB PO SCH ×2 (08:15→11:19)
[2020-11-23] MEDS: FERROUS SULFATE 325 MG TABLET PO SCH (08:16)
[2020-11-23] MEDS: SODIUM BICARBONATE 650 MG TABLET PO SCH (08:16)
[2020-11-23 08:32] VITALS: BP 179/88
[2020-11-23] MEDS ORDERED: INSULIN GLARGINE 100 UNITS/ML, PEN SQ-INSULIN SCH (09:00)
[2020-11-23 12:29] VITALS: BP 176/88
[2020-11-23] MEDS ORDERED: HYDR-3343 PO (14:29)
[2020-11-23] MEDS ORDERED: INSU100I13 SQ-INSULIN (14:29)
[2020-11-23] MEDS ORDERED: SEVE800T8 PO (14:29)
[2020-11-23] MEDS ORDERED: FERR325T18 PO (14:29)
[2020-11-23] MEDS ORDERED: SODI650T PO (14:29)
[2020-11-23] MEDS ORDERED: INSU100I11 SQ-INSULIN (14:29)
[2020-11-23] MEDS ORDERED: ERGO500017 PO (14:29)
[2020-11-23] MEDS ORDERED: ATOR-2 PO (14:29)
[2020-11-23] MEDS ORDERED: LOSA25TA25 PO (14:30)
[2020-11-23] MEDS ORDERED: FURO40TA6 PO (22:13)
[2020-11-24] MEDS ORDERED: SODIUM BICARBONATE 650 MG TABLET PO SCH (12:30)
== END 2020-11-23 19:00 | disposition home or self-care (01) | DRG 291 ==
LOC: ED 17:43 → EDIP 17:45 → 5SO 19:26
PROVIDERS: ADMIT Internal Medicine; ATTEND Internal Medicine
DX: I13.0 Hypertensive heart and chronic kidney disease with heart failure and stage 1 through stage 4 chronic kidney disease, or unspecified chronic kidney disease (principal); I50.43 Acute on chronic combined systolic (congestive) and diastolic (congestive) heart failure; J96.01 Acute respiratory failure with hypoxia; N17.9 Acute kidney failure, unspecified; N18.4 Chronic kidney disease, stage 4 (severe); D63.1 Anemia in chronic kidney disease; I42.9 Cardiomyopathy, unspecified; E11.22 Type 2 diabetes mellitus with diabetic chronic kidney disease; E11.43 Type 2 diabetes mellitus with diabetic autonomic (poly)neuropathy; E11.649 Type 2 diabetes mellitus with hypoglycemia without coma; E78.5 Hyperlipidemia, unspecified; I27.20 Pulmonary hypertension, unspecified; K21.9 Gastro-esophageal reflux disease without esophagitis; K31.84 Gastroparesis; Z79.4 Long term (current) use of insulin; Z79.899 Other long term (current) drug therapy; Z82.49 Family history of ischemic heart disease and other diseases of the circulatory system
CPT/HCPCS: 36415; 71045; 80048; 80053; 80069; 81001; 82607; 82728; 82962; 83540; 83550; 83735; 83880; 84443; 84484; 85025; 87086; 93005; 96372; 96374; 96375; 99285; G0378; J1644; J1940; P9047; J0360; J1815

== ENCOUNTER 2021-03-16 20:20 | Emergency (ER) | payer OTHER ==
[~2021-03-16] VITALS: Ht 132.1 cm; Wt 49.8 kg
[~2021-03-16 20:20] MED LIST changes: +FURO40TA6 PO; +HYDR-3343 PO; +LINA5TAB PO; +LOSA25TA25 PO; +SODI650T PO
[2021-03-16] MEDS ORDERED: MAALOX/HYOSCYAMINE/LIDOCAINE 45 ML BTL PO ONE (22:00)
--- NOTE | 2021-03-16 22:26 | NUR ---
US AT BEDSIDE
[2021-03-16 22:34] LABS: BASOPHILS % (AUTO) 1 % (0-1); EOSINOPHILS % (AUTO) 2 % (1-7); LYMPHOCYTES % (AUTO) 14 % (22-44); MEAN CORPUSCULAR HEMOGLOBIN 28.5 pg (27.0-34.8); MEAN CORPUSCULAR HGB CONC 33.3 g/dL (32.4-35.8); MEAN PLATELET VOLUME 8.1 fL (7.4-10.4); MONOCYTES % (AUTO) 7 % (2-9); NEUTROPHILS % (AUTO) 77 % (42-75); PLATELET COUNT 372 x10^3/uL (130-400); RED BLOOD COUNT 3.59 x10^6/uL (3.82-5.3); RED CELL DISTRIBUTION WIDTH 14.3 % (9.6-15.2)
[2021-03-16] MEDS ORDERED: MAALOX/HYOSCYAMINE/LIDOCAINE 45 ML BTL ONE (22:46)
[2021-03-16 23:51] LABS: ALBUMIN 2.4 g/dL (3.4-5.0); ANION GAP 9 mmol/L (5-15); CALCIUM 8.6 mg/dL (8.5-10.1); CHLORIDE 99 mmol/L (98-107); CREATININE 5.25 mg/dL (0.55-1.02)
[2021-03-16 23:56] LABS: ALKALINE PHOSPHATASE 88 U/L (45-117); BILIRUBIN,TOTAL 0.3 mg/dL (0.2-1.0); TOTAL PROTEIN 7.6 g/dL (6.4-8.2); TROPONIN I < 0.015 ng/mL (0.000-0.045)
[2021-03-16 23:58] LABS: ALANINE AMINOTRANSFERASE 24 U/L (12-78)
[2021-03-17] MEDS ORDERED: ACETAMINOPHEN 325 MG TABLET ONE (00:54)
[2021-03-17] MEDS ORDERED: ACETAMINOPHEN 325 MG TABLET PO ONE (01:00)
[2021-03-17] MEDS ORDERED: SODIUM CHLORIDE 0.9% 1,000ML IVBOLUS ONE (01:30)
[2021-03-17 02:45] VITALS: BP 171/79
--- NOTE | 2021-03-17 02:53 | NUR ---
Patient given discharge instructions and they have confirmed that they understand the instructions. Patient ambulatory with steady gait. NAD, all questions answered appropriately, denies additional needs at this time. No personal belongings left in room after discharge.
== END 2021-03-17 02:59 | disposition home or self-care (01) ==
LOC: ED 21:33
DX: K29.00 Acute gastritis without bleeding (principal); N17.9 Acute kidney failure, unspecified; R94.31 Abnormal electrocardiogram [ECG] [EKG]; I11.0 Hypertensive heart disease with heart failure; I50.9 Heart failure, unspecified; E11.9 Type 2 diabetes mellitus without complications; E78.00 Pure hypercholesterolemia, unspecified
CPT/HCPCS: 36415; 76700; 80053; 83690; 84484; 85025; 93005; 96360; 99285; J7030